=== PATIENT | male | born 1960 | race Caucasian/White ===

== ENCOUNTER 2024-02-19 19:17 | Emergency (ER) | payer OTHER ==
[~2024-02-19] VITALS: Ht 170.2 cm; Wt 86.2 kg
[2024-02-19 20:11] VITALS: BP 169/66; PULSE 69; RESP 18; TEMP 98; O2SAT 99
[2024-02-19 21:17] VITALS: BP 164/68; PULSE 74; RESP 18; TEMP 98.3
[2024-02-19 23:00] VITALS: O2SAT 99
[2024-02-19] MEDS ORDERED: LIDOCAINE MPF 1% 5 ML ONE (23:07)
[2024-02-19] MEDS: LIDOCAINE MPF 1% 10 MG/ML VIAL INJ ONE (23:20)
== END 2024-02-19 23:32 | disposition home or self-care (01) ==
LOC: MED 19:17
DX: S61.213A Laceration without foreign body of left middle finger without damage to nail, initial encounter (principal); I10 Essential (primary) hypertension; X50.9XXA Other and unspecified overexertion or strenuous movements or postures, initial encounter; Y93.89 Activity, other specified; Y92.89 Other specified places as the place of occurrence of the external cause; Y99.8 Other external cause status
CPT/HCPCS: 12002; 99282; J2001